=== PATIENT | male | born 1975 | race African-American/Black ===

== ENCOUNTER 2022-10-05 09:36 | Emergency (ER) | payer BC ==
[2022-10-05] MEDS ORDERED: Tetracaine 0.5% PF 4 ML BOT ONE (11:23)
[2022-10-05] MEDS ORDERED: Fluorescein Opthalmic Strip ONE (11:23)
== END 2022-10-05 12:13 | disposition home or self-care (01) ==
LOC: CSHERS 09:36
DX: T15.12XA Foreign body in conjunctival sac, left eye, initial encounter (principal)
CPT/HCPCS: 99283